=== PATIENT | female | born 1940 | race Asian ===

== ENCOUNTER 2016-11-23 16:39 | Emergency (ER) | payer MEDICARE, OTHER ==
[~2016-11-23] VITALS: Ht 165.1 cm; Wt 59.0 kg
[2016-11-23] MEDS ORDERED: Morphine Sulfate 2mg/ml Inj IVP ONE (16:45)
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
[2016-11-23 17:47] VITALS: BP 142/57
[2016-11-23] MEDS ORDERED: COLACE100 MG ORAL (18:08)
[2016-11-23] MEDS ORDERED: NORCO 5-325 TA1 EAC1 ORAL (18:08)
[2016-11-23 18:57] VITALS: BP 144/61
--- NOTE | 2016-11-24 09:36 | Diagnostic Imaging Report ---
\H\Indication\N\: PAIN \H\Technique\N\: No oral or IV contrast, per emergency room physician request Spiral acquisitions obtained through the chest, abdomen, and pelvis Multiplanar reconstructions were generated. Total dose length product 888 mGycm. CTDIvol(s) 13.9 mGy. Radiation dose was minimized using automated exposure control \H\Comparison\N\: None \H\Findings\N\: Chest: There is a minimally displaced comminuted fracture of the sternal body. There is mild thickening of the immediately adjacent soft tissues but no large retrosternal hematoma. There is slight ecchymosis extending into the retrosternal fat, predominantly on the left. No other acute fracture demonstrated. Lungs demonstrate mild upper lobe hyperinflation. There are dependent atelectatic changes at both lung bases. There are areas of scarring or atelectasis in the left perihilar region as well. No infiltrate, effusion, mass, or pneumothorax is demonstrated. Lack of IV contrast limits assessment of the vascular structures. No gross aortic injury is evident. The heart size is upper limits normal. No pericardial effusion. No mediastinal or hilar mass or adenopathy. No axillary or chest wall mass or adenopathy. Abdomen pelvis: There is transitional lumbosacral anatomy, with 6 nonrib-bearing lumbar type vertebral bodies. The highest of these will be referred to as L1. There is an anterior wedge compression fracture deformity of the L1 vertebral body with about 20% height loss anteriorly, no posterior retropulsion. Acuity of this is indeterminate. No other acute osseous abnormality is demonstrated. There are mild degenerative changes of the lumbar spine. No evidence of significant soft tissue contusion. The appendix is slightly prominent in caliber but no significant periappendiceal inflammation is evident. No small bowel distention. However, there is some fecalization of small bowel contents distally, indicating stasis of small bowel contents. No free or loculated intraperitoneal air or fluid. There are colonic diverticula. No evidence of diverticulitis. The stomach is unremarkable. Duodenum is unremarkable. Lack of IV contrast limits assessment of the solid organs. The liver, gallbladder, bile ducts, pancreas, spleen, adrenals, kidneys are grossly unremarkable. No retroperitoneal or mesenteric mass or adenopathy. No pelvic mass or adenopathy. There is a calcification within the uterus. Bladder is unremarkable. \H\Impression\N\: Positive for acute minimally displaced comminuted sternal fracture. There is slight adjacent ecchymosis but no significant retrosternal hematoma No other acute thoracic injury or acute thoracic pathology Mild COPD changes L1 compression fracture, age indeterminate. Consider MRI for further evaluation if indicated by clinical symptoms No definite acute solid organ injury. Note, however, that exam is limited for evaluation of such by lack of IV contrast Possible stasis of small bowel contents, significance/etiology uncertain. No acute abdominal pathology otherwise Diverticulosis. No evidence of diverticulitis Likely old degenerated uterine fibroid This agrees with the preliminary interpretation provided overnight by Dr. Cormier The CT scanner at [facility] is accredited by the [employer] and the scans are performed using protocols designed to limit radiation exposure to as low as reasonably achievable to attain images of sufficient resolution adequate for diagnostic evaluation.
--- NOTE | 2016-11-25 08:19 | Cardiology Report ---
APPROVED REPORT EKG Measurement Heart [id number] Normal sinus rhythm Normal ECG
== END 2016-11-23 19:01 | disposition home or self-care (01) ==
LOC: EDBD 16:39 → EMR 16:59
DX: S22.20XA Unspecified fracture of sternum, initial encounter for closed fracture (principal); V49.9XXA Car occupant (driver) (passenger) injured in unspecified traffic accident, initial encounter; Y93.9 Activity, unspecified; Y99.9 Unspecified external cause status; I10 Essential (primary) hypertension
CPT/HCPCS: 71250; 74176; 93005; 96374; 96375; 99284; J2270; J2405